=== PATIENT | male | born 1970 | race Caucasian/White ===

== ENCOUNTER 2022-01-11 19:22 | Emergency (ER) | payer SELFPAY ==
[~2022-01-11] VITALS: Ht 177.8 cm; Wt 132.8 kg
[2022-01-11 19:46] VITALS: BP 149/94
[2022-01-11 20:13] LABS: BASOPHILS # (AUTO) 0.1 X10'3 (0-0.2); BASOPHILS % (AUTO) 0.9 % (0-1); EOSINOPHILS # (AUTO) 0.6 X10'3 (0-0.9); EOSINOPHILS % (AUTO) 6.8 % (0-6); HEMATOCRIT 45.2 % (42.0-52.0); HEMOGLOBIN 15.6 g/dl (14.0-17.9); LYMPHOCYTES # (AUTO) 2.8 X10'3 (1.1-4.8); LYMPHOCYTES % (AUTO) 30.5 % (21-51); MEAN CORPUSCULAR HEMOGLOBIN 30.7 PG (27.0-31.0); MEAN CORPUSCULAR HGB CONC 34.6 g/dL (33.0-36.5); MEAN CORPUSCULAR VOLUME 88.7 FL (78-98); MONOCYTES # (AUTO) 0.8 X10'3 (0-0.9); MONOCYTES % (AUTO) 8.7 % (2-12); NEUTROPHILS # (AUTO) 4.9 X10'3 (1.8-7.7); NEUTROPHILS % (AUTO) 53.1 % (42-75); PLATELET COUNT 361 X10'3 (140-440); RED BLOOD COUNT 5.09 X10'6 (4.70-6.10); RED CELL DISTRIBUTION WIDTH 13.5 % (11.5-14.5); WHITE BLOOD COUNT 9.3 X10'3 (4.5-11.0)
[2022-01-11 20:26] LABS: ALANINE AMINOTRANSFERASE 29 U/L (12-78); ALBUMIN 3.8 G/DL (3.4-5.0); ALKALINE PHOSPHATASE 82 IU/L (46-116); ANION GAP 7 (8-16); ASPARTATE AMINO TRANSFERASE 18 U/L (10-37); BILIRUBIN,TOTAL 0.5 MG/DL (0.1-1.0); BLOOD UREA NITROGEN 21 MG/DL (7-18); BUN/CREATININE RATIO 16.2 (5.4-32.0); CALCIUM 9.1 MG/DL (8.5-10.1); CHLORIDE 107 MMOL/L (99-107); GLUCOSE 103 MG/DL (70-104); POTASSIUM 4.4 MMOL/L (3.5-5.1); SODIUM 141 MMOL/L (135-145); TOTAL CARBON DIOXIDE 27.3 MMOL/L (24-32); TOTAL PROTEIN 7.7 G/DL (6.4-8.2); eGFR 58 ML/MIN
[2022-01-12] MEDS ORDERED: FLUT1DIS15 INH (03:45)
[2022-01-12] MEDS ORDERED: ALBU18HF2 INH (03:45)
[2022-01-12] MEDS ORDERED: AZIT-31 PO (03:45)
[2022-01-12] MEDS ORDERED: PRED20TA PO (03:45)
== END 2022-01-12 01:22 | disposition left against medical advice (07) ==
LOC: ER 19:22
DX: R06.02 Shortness of breath (principal); Z53.21 Procedure and treatment not carried out due to patient leaving prior to being seen by health care provider
CPT/HCPCS: 36415; 71045; 80053; 83880; 84484; 85025; 93005

== ENCOUNTER 2022-01-12 01:56 | Emergency (ER) | payer MEDICARE, OTHER ==
[~2022-01-12] VITALS: Ht 182.9 cm; Wt 82.0 kg
--- NOTE | 2022-01-12 02:07 | NUR ---
SPOKE TO DR TAYLOR. NO NEW LABS OR ORDERS AT THIS TIME PT HAD THESE DONE JUST A FEW HOURS AGO. WAITING FOR A ROOM FOR THE PATIENT.
[2022-01-12] MEDS ORDERED: PRED20TA PO (03:45)
[2022-01-12] MEDS ORDERED: predniSONE 20 mg tablet PO ONE (03:45)
[2022-01-12] MEDS ORDERED: AZIT-31 PO (03:45)
[2022-01-12] MEDS ORDERED: ipratropium/albuterol 3ml nebule NEB ONE (03:45)
[2022-01-12] MEDS ORDERED: FLUT1DIS15 INH (03:45)
[2022-01-12] MEDS ORDERED: albuterol 2.5 MG/3 ML nebule NEB ONE (03:45)
[2022-01-12] MEDS ORDERED: ALBU18HF2 INH (03:45)
[2022-01-12 04:44] VITALS: BP 110/83
== END 2022-01-12 04:46 | disposition home or self-care (01) ==
LOC: ER 01:56
DX: J45.901 Unspecified asthma with (acute) exacerbation (principal); I11.0 Hypertensive heart disease with heart failure; J44.9 Chronic obstructive pulmonary disease, unspecified; F17.200 Nicotine dependence, unspecified, uncomplicated; Z88.5 Allergy status to narcotic agent; Z79.899 Other long term (current) drug therapy; Z79.2 Long term (current) use of antibiotics
CPT/HCPCS: 94640; 94664; 99283; J7512; 94760